=== PATIENT | female | born 1975 | race Caucasian/White ===

== ENCOUNTER 2023-11-13 11:56 | Emergency (ER) | payer SELFPAY ==
[~2023-11-13] VITALS: Ht 152.4 cm; Wt 78.0 kg
[2023-11-13 12:13] VITALS: BP 141/105; PULSE 79; RESP 18; TEMP 98.6; O2SAT 98
[2023-11-13 14:34] LABS: BASOPHILS % (AUTO) 0.4 % (0.0-2.0); EOSINOPHILS # (AUTO) 0.2 K/uL (0-0.4); EOSINOPHILS % (AUTO) 2.1 % (0.0-4.0); HEMATOCRIT 42.1 % (36-48); HEMOGLOBIN 14.7 g/dL (12.0-16.0); LYMPHOCYTES # (AUTO) 2.9 K/uL (2.5-16.5); LYMPHOCYTES % (AUTO) 33.3 % (20.5-51.1); MEAN CORPUSCULAR HEMOGLOBIN 29 pg (27-31); MEAN CORPUSCULAR HGB CONC 35 g/dL (33-37); MEAN CORPUSCULAR VOLUME 84.1 fL (80-94); MONOCYTES # (AUTO) 0.4 K/uL (0.8-1.0); NEUTROPHILS # (AUTO) 5.3 K/uL (1.8-7.7); NEUTROPHILS % (AUTO) 60.2 % (42.2-75.2); PLATELET COUNT (AUTO) 192 K/uL (140-450); RED BLOOD CELL COUNT(AUTO) 5.01 MIL/uL (4.20-5.40); RED CELL DISTRIBUTION WIDTH 12.4 % (11.6-13.7); WHITE BLOOD COUNT (AUTO) 8.8 K/uL (4.8-10.8)
[2023-11-13 14:45] LABS: ANION GAP 15.3 (8-16); CALCIUM 9.1 mg/dL (8.5-10.1); CARBON DIOXIDE 24.9 mmol/L (21-32); CREATININE 0.5 mg/dL (0.6-1.3); POTASSIUM 4.2 mmol/L (3.5-5.1)
[2023-11-13] MEDS ORDERED: IBUP-2213 PO (15:58)
[2023-11-13] MEDS ORDERED: METF-346 PO (15:58)
[2023-11-13] MEDS ORDERED: CEPH-588 PO (15:58)
== END 2023-11-13 16:25 | disposition home or self-care (01) ==
LOC: MED 11:56
DX: E11.65 Type 2 diabetes mellitus with hyperglycemia (principal); L03.012 Cellulitis of left finger; R03.0 Elevated blood-pressure reading, without diagnosis of hypertension; Z79.4 Long term (current) use of insulin; Z79.899 Other long term (current) drug therapy
CPT/HCPCS: 36415; 73140; 80048; 82948; 85025; 99284